=== PATIENT | female | born 1965 | race Caucasian/White ===

== ENCOUNTER 2019-01-24 06:25 | Day surgery (SDC) | payer OTHER ==
[~2019-01-24] VITALS: Ht 172.7 cm; Wt 59.4 kg
[~2019-01-24 06:25] MED LIST: LEVOTHYROXINE112 MCG PO; PROGESTERONE200 MG PO
--- NOTE | 2019-01-24 08:20 | NUR ---
01/24/19 0820 Miryam Samaniego 0814 PT ARRIVED TO PACU REACTIVE TO VERBAL STIMULI AND ON 3L VIA NC. PT DENIES PAIN AND NAUSEA. PT REORIENTED TO PACU AND ENCOURAGED TO PASS GAS/AIR. PT BACK TO SLEEP, RESP EVEN AND UNLABORED. 0817 O2 REMOVED.
--- NOTE | 2019-01-25 09:42 | OR ---
[facility] [address] [place] [address] Signed DATE OF OPERATION: 01/24/2019 SURGEON: Fernando Guo MD PREOPERATIVE DIAGNOSIS: Colon screening. POSTOPERATIVE DIAGNOSIS: Normal colon to cecum. PROCEDURE: Total colonoscopy to cecum. ANESTHESIA: Intravenous sedation, fentanyl 100 mcg, Versed 5 mg. INDICATION: This 53-year-old white woman is a patient of Dr. Boswell. She is referred for colon screening based on her age. She has no symptoms of bleeding, diarrhea or constipation, and no family history of colon cancer. She understands the risks of bleeding, infection, and perforation related to colonoscopy and wished to proceed. FINDINGS: The prep was excellent. Complete colonoscopy was undertaken to the cecum without question. There was no sign of polyps, diverticular formation, colitis, or cancer. Retroflex view was normal as well. DESCRIPTION OF PROCEDURE: The patient was brought to the endoscopy suite and placed in lateral decubitus position, given intravenous sedation to the point of slurred speech and nystagmus. Digital rectal examination was normal. An Olympus video colonoscope was passed in the rectum and manipulated throughout the colon ultimately intubating the cecum itself. The ileocecal valve and appendiceal orifice were normal. The scope was withdrawn from that point. Examination throughout showed no sign of abnormality specifically no polyps, diverticular formation, colitis, or cancer. Retroflex view was normal as well. The scope was removed. The patient was taken to recovery room in good condition. CONCLUDING DIAGNOSIS: Electronically Signed By: FERNANDO GUO MD 01/25/19 0942 PATIENT NAME: CANDIS PORTILLO OPERATIVE REPORT DATE OF : 69 REPORT #: [id number] PHYSICIAN: FERNANDO GUO MD PCP: TAMI CARBAJAL PAC REPORT IS CONFIDENTIAL AND NOT TO BE RELEASED WITHOUT AUTHORIZATION [facility] [address] [place] [address] Signed Normal colon to cecum. PLAN: Recommend repeat colonoscopy in 10 years sooner if symptoms should occur. She will return to the ongoing care of Dr. Boswell. MD GABBY Chappell/MODL /[id number] cc: MD Tami Glass Copies: YUSEF BOSWELL MD ~ Electronically Signed By: FERNANDO GUO MD 01/25/19 0942 PATIENT NAME: CANDIS PORTILLO OPERATIVE REPORT DATE OF : 69 REPORT #: [id number] PHYSICIAN: FERNANDO GUO MD PCP: TAMI CARBAJAL PAC REPORT IS CONFIDENTIAL AND NOT TO BE RELEASED WITHOUT AUTHORIZATION
== END 2019-01-24 09:20 | disposition home or self-care (01) ==
LOC: DS 06:25 → OPS 06:25
PROVIDERS: Surgery
PROC: 0DJD8ZZ Inspection of Lower Intestinal Tract, Via Natural or Artificial Opening Endoscopic (ICD-10-PCS; principal; 2019-01-24 06:45)
DX: Z12.11 Encounter for screening for malignant neoplasm of colon (principal); E03.9 Hypothyroidism, unspecified; Z88.0 Allergy status to penicillin
CPT/HCPCS: 99153; G0500; J2250; J3010; J7120